=== PATIENT | male | born 2000 | race Caucasian/White ===

== ENCOUNTER 2023-12-19 10:37 | Emergency (ER) | payer OTHER, SELFPAY ==
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
--- NOTE | ~2023-12-19 | XR_ITS ---
EXAMINATION: XR HAND, RIGHT CLINICAL INFORMATION: Injured right thumb. COMPARISON: None available. TECHNIQUE: PA, lateral, and oblique views of the right hand. FINDINGS: The bones and soft tissues are normal. No fracture. Alignment is anatomic. Joint spaces are maintained. No erosions or soft tissue calcifications. XR/XR hand RT min 3V IMPRESSION: Normal right hand radiographs. Electronically signed by: Nhan Fried MD 12/19/2023 03:25 PM EDT
[2023-12-19 10:55] VITALS: BP 117/60; PULSE 94; RESP 18; TEMP 36.9; O2SAT 97; BMI 23.8
[2023-12-19 15:29] VITALS: BP 147/84; PULSE 75; RESP 14; TEMP 36.4; O2SAT 100
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
--- NOTE | 2023-12-19 15:43 | PC.NURSE ---
provider in for assessment. pt presented to EMD with a steady gait, he is able to speak in clear approp sentences awaiting dispostion
[2023-12-19 16:00] VITALS: BP 118/68; PULSE 63; RESP 16; TEMP 36.5; O2SAT 100
[2023-12-19] MEDS: Acetaminophen 325 MG TABLET 975 MG PO (16:39)
[2023-12-19 18:32] VITALS: BP 118/73; PULSE 65; RESP 18; TEMP 36.6; O2SAT 98
[2023-12-19] MEDS: Ibuprofen 600 MG TABLET PO (19:54)
[2023-12-19 20:12] VITALS: BP 115/76; PULSE 78; RESP 16; TEMP 36.7; O2SAT 98
[2023-12-19 21:09] VITALS: BP 115/76; PULSE 78; RESP 16; TEMP 36.7; O2SAT 98
== END 2023-12-19 21:10 | disposition home or self-care (01) ==
PROVIDERS: Emergency Provider Emergency Medicine
DX: S06.0X0A Concussion without loss of consciousness, initial encounter (principal); S63.91XA Sprain of unspecified part of right wrist and hand, initial encounter; R51.9 Headache, unspecified; M54.2 Cervicalgia; M79.644 Pain in right finger(s); M79.641 Pain in right hand; Y33.XXXA Other specified events, undetermined intent, initial encounter; Y93.89 Activity, other specified; Y92.89 Other specified places as the place of occurrence of the external cause; Y99.0 Civilian activity done for income or pay
CPT/HCPCS: 70450; 72125; 73130; 99284

== ENCOUNTER → 2023-12-21 10:41 | Outpatient (BNVA) | payer OTHER, SELFPAY | PROVIDERS: Visit Provider Internal Medicine | DX: Z09 Encounter for follow-up examination after completed treatment for conditions other than malignant neoplasm (principal); R51.9 Headache, unspecified; M79.644 Pain in right finger(s); S06.0X0A Concussion without loss of consciousness, initial encounter; S50.312A Abrasion of left elbow, initial encounter; S50.311A Abrasion of right elbow, initial encounter; W37.8XXA Explosion and rupture of other pressurized tire, pipe or hose, initial encounter | CPT/HCPCS: 99203 ==

== ENCOUNTER → 2023-12-28 10:06 | Outpatient (BNVA) | payer OTHER, SELFPAY | PROVIDERS: Visit Provider Internal Medicine | DX: S06.0X0A Concussion without loss of consciousness, initial encounter (principal); S63.601A Unspecified sprain of right thumb, initial encounter; W37.8XXA Explosion and rupture of other pressurized tire, pipe or hose, initial encounter | CPT/HCPCS: 99214 ==

== ENCOUNTER → 2024-01-04 10:58 | Outpatient (BNVA) | payer OTHER, SELFPAY | PROVIDERS: Visit Provider Internal Medicine | DX: S63.501D Unspecified sprain of right wrist, subsequent encounter (principal); S63.601D Unspecified sprain of right thumb, subsequent encounter; W37.8XXD Explosion and rupture of other pressurized tire, pipe or hose, subsequent encounter | CPT/HCPCS: 99213 ==

== ENCOUNTER → 2024-01-18 10:37 | Outpatient (BNVA) | payer OTHER, SELFPAY | PROVIDERS: Visit Provider Internal Medicine | DX: S63.601D Unspecified sprain of right thumb, subsequent encounter (principal); S63.501D Unspecified sprain of right wrist, subsequent encounter; W37.8XXD Explosion and rupture of other pressurized tire, pipe or hose, subsequent encounter | CPT/HCPCS: 99213 ==